=== PATIENT | male | born 1970 | race Caucasian/White ===

== ENCOUNTER → 2020-02-19 | Outpatient (CLI) | payer OTHER, SELFPAY | PROVIDERS: Referring Provider Internal Medicine; Visit Provider Internal Medicine | DX: Z23 Encounter for immunization (principal) | CPT/HCPCS: 90471; 90686 ==

== ENCOUNTER → 2020-05-15 14:30 | Outpatient (CLI) | payer OTHER, SELFPAY ==
[2020-05-15 15:05] LABS: COVID19 -Nasal RAPID Negative (Negative)
== END ==
PROVIDERS: Visit Provider Physician Assistant
DX: R19.7 Diarrhea, unspecified (principal); R51.9 Headache, unspecified; Z20.822 Contact with and (suspected) exposure to COVID-19
CPT/HCPCS: 87635

== ENCOUNTER 2021-06-19 04:39 | Emergency (ER) | payer SELFPAY ==
[2021-06-19 05:06] VITALS: BP 147/93; PULSE 102; RESP 20; TEMP 37; O2SAT 97; BMI 32.2
--- NOTE | 2021-06-19 05:15 | DI.RAD.S_ITS ---
PROCEDURE: XR KNEE RT 3V INDICATIONS: anterior knee pain after fall TECHNIQUE: 3 views of the knee were acquired. COMPARISON: None. FINDINGS: Bones: No fractures or dislocations. No suspicious bony lesions. Soft tissues: No joint effusion. No suspicious soft tissue calcifications. Prepatellar soft tissue swelling noted. IMPRESSION: No fracture. No acute osseous lesion. If symptoms and/or clinical suspicion for pathology persists, further assessment with repeat radiographs (7-10 days) or advanced imaging (e.g. CT, MRI or bone scan) should be considered. Dictated by: Cori Benavides MD, PhD on 06/19/2021 at 9:33 Approved by: Cori Benavides MD, PhD on 06/19/2021 at 9:33
--- NOTE | 2021-06-19 05:15 | ED_ITS ---
HPI - Extremity Injury (Lower) General Chief Complaint: Extremity Injury, Lower Stated Complaint: rt knee cap pain Time Seen by Provider: 06/19/21 05:02 Source: patient Mode of arrival: Ambulatory Limitations: no limitations History of Present Illness HPI Narrative: Patient is a 50-year-old male here for evaluation of right knee pain. He states that a couple days ago he knelt down and since that time has had pain on the front of his knee. He did not fall. He has been able to walk. He is concerned about a ?patellar rupture ?has had problems sleeping at night because of the discomfort. Related Data Previous Rx's Medication Instructions Recorded tramadol 50 mg tablet 50 mg PO Q8H PRN #12 tab 06/19/21 Allergies Allergy/AdvReac Type Severity Reaction Status Date / Time erythromycin base Allergy Verified 06/19/21 05:06 Sulfa (Sulfonamide Allergy Verified 06/19/21 05:06 Antibiotics) Review of Systems Musculoskeletal Musculoskeletal: Reports system reviewed and no additional complaints, except as documented and Reports as per HPI Integumentary/Breasts Skin/Breast: Reports system reviewed and no additional complaints, except as documented and Reports as per HPI Neurologic Neurologic: Reports system reviewed and no additional complaints, except as documented and Reports as per HPI Patient History Social History Smoking Status: Never smoker Smoking Status: Never smoker alcohol intake frequency: a few times a week Substance Use Type: does not use Exam Initial Vital Signs Initial Vital Signs: Vital Signs Temperature 98.6 F 06/19/21 05:06 Pulse Rate 102 H 06/19/21 05:06 Respiratory Rate 20 06/19/21 05:06 Blood Pressure 147/93 H 06/19/21 05:06 Pulse Oximetry 97 06/19/21 05:06 HENMT Head: normal to inspection and normocephalic Skin Other: Slight redness on the prepatellar skin. Neuro Sensory Exam: no sensory deficits noted Extrem Other: Right ankle and right hip unremarkable. Quadriceps tendon patellar tendon appear to be intact. Patient is able to do a straight leg raise but has discomfort. Is quite a bit of discomfort with bending his knee. No hamstring tenderness. No mediolateral joint line tenderness. Procedures Orthopedic Splinting/Casting Injury #1: Side: right Lower Extremity Injury Location: knee Lower Extremity Immobilizer: knee immobilizer Post splinting neuro exam: intact Post splinting vascular exam: intact Placed by: Nursing Course Orders Ordered: ED Orders 06/19/21 05:15 XR knee RT 3V Stat Vital Signs Vital signs: Vital Signs - 8 hr 06/19/21 05:06 Temperature 98.6 F Pulse Rate 102 H Respiratory Rate 20 Blood Pressure 147/93 H Pulse Oximetry 97 MDM - Extremity Injury (Lower) Imaging Data Extremity x-ray #1: Radiologist's Impression: No acute bony abnormality involving the right knee Prepatellar soft tissue swelling most marked in the infrapatellar region [facility] Narrative Medical decision making narrative: X-ray shows no signs of fracture. He does have tenderness specifically over the prepatellar area. I did consider bursitis which still could potentially be the issue and I did discuss this with him. There is no signs of any infection. No indication for antibiotics. He is able to do a straight leg raise. His patella tendon and quadriceps tendon appear to be intact. Will place in a knee immobilizer for his comfort and have him follow-up with orthopedics. He was given return precautions. He expressed understanding and agreement. Discharge Plan Departure Patient Disposition: Home Clinical Impression: Knee pain Instructions: How to Use a Knee Immobilizer Activity Restrictions/Additional Instructions: Recommend you contact the orthopedic doctors at the number provided below. You can remove the knee immobilizer as needed for comfort. Return to the emergency department for any new or worsening symptoms. Prescriptions: New tramadol 50 mg tablet 50 mg PO Q8H PRN (Reason: pain) Qty: 12 0RF Referrals: Hien Raygoza MD [Physician] - Miscellaneous,MD Audrey [Primary Care Provider] -
== END 2021-06-19 07:04 | disposition home or self-care (01) ==
PROVIDERS: Emergency Provider Emergency Medicine
DX: M25.561 Pain in right knee (principal)
CPT/HCPCS: 73562; 99282; 99283